=== PATIENT | female | born 1940 | race Caucasian/White ===

== ENCOUNTER 2020-02-23 12:46 | Emergency (ER) | payer MEDICARE, OTHER ==
[~2020-02-23] VITALS: Ht 152.4 cm; Wt 90.7 kg
[2020-02-23] MEDS ORDERED: IV NS 0.9% 1,000 ML BAG IV ONE (13:00)
[2020-02-23] MEDS ORDERED: GABA-532 PO (13:49)
[2020-02-23] MEDS ORDERED: ATOR20TA PO (13:49)
[2020-02-23] MEDS ORDERED: LIPA1CAP15 PO (13:49)
[2020-02-23] MEDS ORDERED: MECL-159 PO (13:49)
[2020-02-23] MEDS ORDERED: OLME1TAB42 PO (13:49)
[2020-02-23] MEDS ORDERED: PROP10TA68 PO (13:49)
[2020-02-23] MEDS ORDERED: ASPI-1420 PO (13:49)
[2020-02-23] MEDS ORDERED: LINA72CA PO (13:49)
[2020-02-23] MEDS ORDERED: LORA-258 PO (13:49)
[2020-02-23 14:00] LABS: BASOPHILS % (AUTO) 0.3 % (0.0-2.0); HEMATOCRIT 37 % (33-45); HEMOGLOBIN 12.2 g/dL (11.5-14.8); LYMPHOCYTES # (AUTO) 0.9 /CMM (0.8-4.8); LYMPHOCYTES % (AUTO) 21.1 % (20.0-44.0); MEAN CORPUSCULAR HGB CONC 33 g/dl (31.0-36.0); MEAN CORPUSCULAR VOLUME 92 fL (82-100); MONOCYTES # (AUTO) 0.4 /CMM (0.1-1.30); NEUTROPHILS % (AUTO) 68.6 % (43.0-81.0); PLATELET COUNT (AUTO) 134 /CMM (150-450); RED BLOOD CELL COUNT(AUTO) 4.01 MIL/uL (4.0-5.2); WHITE BLOOD COUNT (AUTO) 4.3 K/uL (4.3-11.0)
--- NOTE | 2020-02-23 14:12 | NUR ---
BIBFAMILY FROM HOME TO ER BED 5. PORTUGUESE SPEAKING, FAILY TRANSLATING. AAOX4. SOB, SATTING 89% ON RA, PLACED ON 02 VIA NC @ 4LPM SATTING AT 97%. C/O SOB AND BACK PAIN X 12 DAYS. PAIN IS RATED 8/10 SHARP THROBBING. WAS A THE BEDSIDE FOR EVAL. ORDERS RECEIVED NOTED AND CARRIED OUT. IV LINE ESTABLISHED ON L AC 20G. BLOOD DRAWN AND GIVEN TO [employer]. EKG AND XRAY DONE AT BEDSIDE
[2020-02-23 14:16] LABS: CALCIUM, SERUM 8.5 mg/dL (8.5-10.1); CARBON DIOXIDE 24 mmol/L (21-32); CHLORIDE 100 mmol/L (98-107); CREATININE 0.9 mg/dL (0.6-1.3); GLUCOSE 107 mg/dL (74-106); POTASSIUM 3.4 mmol/L (3.5-5.1); SODIUM SERUM 136 mmol/L (136-145); UREA NITROGEN, BLOOD 12 mg/dL (7-18)
--- NOTE | 2020-02-23 14:22 | NUR ---
COVID SWAB MANDIE AND SENT TO LAB
[2020-02-23] MEDS ORDERED: DEXAMETHASONE SOD PHOSPHATE 10 MG/ML VIAL ONE (14:26)
--- NOTE | 2020-02-23 14:27 | NUR ---
PT COMPLAINING OF BACK PAIN 8/10 SHARP ACHING PAIN. VERBAL ORDER RECEIVED TO GIVE MORPHINE 4MG IV X 1 DOSE AND ZOFRAN 4MG IV X 1 DOSE. ORDERS NOTED AND WILL CAEEY OUT
[2020-02-23] MEDS ORDERED: ONDANSETRON HCL/PF 4 MG/2 ML VIAL ONE (14:28)
[2020-02-23] MEDS ORDERED: MORPHINE SULFATE INJ 4 MG/ML DISP.SYRIN ONE (14:28)
[2020-02-23 14:29] LABS: ALANINE AMINOTRANSFERASE 35 U/L (12-78); ALBUMIN 3.3 g/dL (3.4-5.0); ALKALINE PHOSPHATASE 73 U/L (46-116); ASPARTATE AMINOTRANSFERASE 39 U/L (15-37); B-TYPE NATRIURETIC PEPTIDE 201 PG/ML (0-125); BILIRUBIN,DIRECT 0.2 mg/dL (0.0-0.2); BILIRUBIN,TOTAL 0.3 mg/dL (0.2-1.0); TOTAL PROTEIN, SERUM 7.4 g/dL (6.4-8.2)
[2020-02-23] MEDS ORDERED: AZITHROMYCIN 500 MG in IV D5W 250 ML IV ONE (14:30)
[2020-02-23] MEDS ORDERED: DEXAMETHASONE SOD PHOSPHATE 10 MG/ML VIAL IV ONE (14:30)
[2020-02-23] MEDS ORDERED: CEFTRIAXONE 1 G in IV D5W 50 ML IV ONE (14:30)
--- NOTE | 2020-02-23 15:16 | NUR ---
PT AMBULATED TO BATHROOM WITH ASSIST FROM HIS SON.
--- NOTE | 2020-02-23 15:17 | NUR ---
PT SON VERBALIZED THAT THE PATIENT DOES NOT WANT TO STAY IN THE HOSPITAL. EXPLAINED TO SON EXTENSIVELY THE SEVERITY OF HER MOTHER CONDITION SEVERAL TIME WELL THE MD TALKING TO THE SON BUT STILL DOES NOT WANT TO STAY IN THE HOSPITAL.
--- NOTE | 2020-02-23 15:31 | NUR ---
Patient does not wish to proceed with medical care recommended by Dr. Chidi Hamilton. Patient given information related to possible complications, up to and including , which could occur as a result of leaving the hospital at this time. Patient verbalizes understanding of risks involved due to leaving against medical advice. Patient has signed AMA form.
[2020-02-23 15:32] VITALS: BP 131/92
--- NOTE | 2020-02-23 15:33 | NUR ---
IV removed. Catheter intact and site benign. Pressure and 4x4 applied to site. No bleeding noted. Pt ambulatory with a steady gait
--- NOTE | 2020-02-23 15:34 | NUR ---
azithromycin not given d/t pt want to leave and go home. md aware
[2020-02-24] MEDS ORDERED: MORPHINE SULFATE INJ 10 MG/ML DISP.SYRIN IV ONE (13:30)
[2020-02-24] MEDS ORDERED: ONDANSETRON HCL/PF 4 MG/2 ML VIAL IV ONE (13:30)
--- NOTE | 2020-02-25 18:05 | NUR ---
RECEIVED COVID RESULTS FROM LAB: POSITIVE, DR SHANNON MADE AWARE
== END 2020-02-23 15:33 | disposition left against medical advice (07) ==
LOC: ER 12:52
DX: A41.89 Other specified sepsis (principal); U07.1 COVID-19; J12.89 Other viral pneumonia; R65.20 Severe sepsis without septic shock; R09.02 Hypoxemia; E78.00 Pure hypercholesterolemia, unspecified; Z79.899 Other long term (current) drug therapy; Z79.82 Long term (current) use of aspirin
CPT/HCPCS: 36415; 71045; 80048; 80076; 83605; 83880; 84484; 85025; 85378; 85730; 87040 ×2; 87081; 93005; 96361; 96365; 96375; 99291; J0456; J0696; J1100; J2270; J2405; J7030; J7060; C9803-CS; U0003-CS